=== PATIENT | male | born 1995 | race Hispanic/Latino ===

== ENCOUNTER 2021-05-08 03:38 | Emergency (ER) | payer BC ==
[~2021-05-08] VITALS: Ht 182.9 cm; Wt 90.7 kg
[2021-05-08] MEDS ORDERED: DiphenhydrAMINE HCL 50 MG/ML VIAL ONE ×2 (04:16→05:32)
[2021-05-08] MEDS ORDERED: LORAZEPAM 2 MG/ML 1 ML VIAL ONE ×2 (04:17→05:32)
[2021-05-08] MEDS ORDERED: HALOPERIDOL INJ 5 MG/ML VIAL ONE (04:17)
[2021-05-08 04:28] VITALS: BP 124/74
[2021-05-08] MEDS ORDERED: HALOPERIDOL INJ 5 MG/ML VIAL IM SCH (04:30)
[2021-05-08] MEDS ORDERED: DiphenhydrAMINE HCL 50 MG/ML VIAL IM ONE ×2 (04:30→06:00)
[2021-05-08] MEDS ORDERED: LORAZEPAM 2 MG/ML 1 ML VIAL IM ONE ×2 (04:30→06:00)
[2021-05-08 06:09] VITALS: BP 126/78
== END 2021-05-08 06:35 ==
LOC: EDH 03:38
DX: F20.9 Schizophrenia, unspecified (principal); R45.1 Restlessness and agitation; F41.9 Anxiety disorder, unspecified; Z79.899 Other long term (current) drug therapy
CPT/HCPCS: 96372; J1200; J1630; J2060